=== PATIENT | male | born 1970 | race African-American/Black ===

== ENCOUNTER → 2019-05-23 | Outpatient (CLI) | payer OTHER ==
[~2019-05-23] MED LIST: AMLODIPINE BESY10 MG PO; BACTRIM DS TAB1 EACH PO; HYDROCODONE-AP1 EAC6 PO; JANUVIA50 MG PO; KEFLEX500 MG PO; METFORMIN HCL500 MG PO; TOPROL XL50 MG PO
== END ==
LOC: SJCVCIMAG 07:51
DX: I13.0 Hypertensive heart and chronic kidney disease with heart failure and stage 1 through stage 4 chronic kidney disease, or unspecified chronic kidney disease (principal); I50.32 Chronic diastolic (congestive) heart failure; E78.00 Pure hypercholesterolemia, unspecified; R60.9 Edema, unspecified; E11.22 Type 2 diabetes mellitus with diabetic chronic kidney disease; N18.9 Chronic kidney disease, unspecified; Z79.84 Long term (current) use of oral hypoglycemic drugs; Z79.82 Long term (current) use of aspirin; Z79.899 Other long term (current) drug therapy; E66.01 Morbid (severe) obesity due to excess calories; E78.5 Hyperlipidemia, unspecified

== ENCOUNTER → 2019-05-30 | Outpatient (CLI) | payer OTHER | LOC: CAT 14:08 | DX: Z13.6 Encounter for screening for cardiovascular disorders (principal); I25.10 Atherosclerotic heart disease of native coronary artery without angina pectoris; E78.00 Pure hypercholesterolemia, unspecified ==

== ENCOUNTER → 2020-01-03 | Outpatient (CLI) | payer OTHER | LOC: SJCVCIMAG 12:05 | PROVIDERS: ATTEND Internal Medicine Cardiovascular Disease | DX: I82.491 Acute embolism and thrombosis of other specified deep vein of right lower extremity (principal); Z87.891 Personal history of nicotine dependence ==

== ENCOUNTER → 2020-01-22 | Outpatient (CLI) | payer OTHER | LOC: SJCVCIMAG 08:01 | PROVIDERS: ATTEND Internal Medicine Cardiovascular Disease | DX: M79.604 Pain in right leg (principal); R22.41 Localized swelling, mass and lump, right lower limb ==

== ENCOUNTER 2020-02-19 01:50 | Emergency (ER) | payer OTHER ==
[~2020-02-19] VITALS: Ht 177.8 cm; Wt 144.2 kg
[2020-02-19] MEDS ORDERED: CARVEDILOL25 MG PO (01:58)
[2020-02-19] MEDS ORDERED: XARELTO10 M1 PO (01:58)
[2020-02-19] MEDS ORDERED: COZAAR 25 MG TA25 M1 PO (01:58)
[2020-02-19] MEDS ORDERED: HYDROCHLOROTHIA25 M2 PO (01:59)
[2020-02-19] MEDS ORDERED: SPIRONOLACTONE25 MG PO (01:59)
[2020-02-19] MEDS ORDERED: ALLOPURINOL 10100 M3 PO (01:59)
[2020-02-19] MEDS ORDERED: GLIMEPIRIDE4 MG PO (02:00)
[2020-02-19] MEDS ORDERED: PERCOCET 5-3251 EACH PO (04:47)
[2020-02-19 04:58] VITALS: BP 155/101
== END 2020-02-19 05:00 | disposition home or self-care (01) ==
LOC: ER 01:50
DX: M79.672 Pain in left foot (principal); M25.572 Pain in left ankle and joints of left foot; R60.0 Localized edema; I11.0 Hypertensive heart disease with heart failure; I50.9 Heart failure, unspecified; E11.9 Type 2 diabetes mellitus without complications; E66.9 Obesity, unspecified; Z68.42 Body mass index [BMI] 45.0-49.9, adult; Z79.899 Other long term (current) drug therapy